=== PATIENT | female | born 1990 | race Two or more races ===

== ENCOUNTER → 2017-04-14 | Day surgery (SDC) | payer MEDICAID ==
[2017-04-11 12:56] LABS: Basophils # (auto) 0 uL; Basophils % (auto) 0.9 % (0.0-2.0); Eosinophils # (auto) 0.2 uL; Eosinophils % (auto) 4.9 % (0.0-7.0); Hematocrit 43.2 % (36.0-46.0); Hemoglobin 14.3 g/dL (12.2-16.2); Lymphocytes # (auto) 1.7 uL; Lymphocytes % (auto) 33.2 % (10.0-50.0); Mean Corpuscular Hemoglobin 29.2 pg (28.0-32.0); Mean Corpuscular Hgb Conc. 33.2 g/dL (32.0-36.0); Mean Platelet Volume 10.7 fL (6.9-10.8); Monocytes # (auto) 0.3 uL; Monocytes % (auto) 6.5 % (0.0-12.0); Neutrophils # (auto) 2.7 uL; Neutrophils % (auto) 54.5 % (37.0-80.0); Platelet Count (auto) 194 10^3/uL (140-450); Red Cell Distribution Width 14.8 % (11.8-14.3)
[2017-04-11 13:15] LABS: INR 0.98 (0.9-1.15); Partial Thromboplastin Time 31.4 sec (22.64-33.71); Prothrombin Time 10.7 sec (9.37-12.3)
[~2017-04-14] VITALS: Ht 160 cm; Wt 55.8 kg
[~2017-04-14] MED LIST: LIDOCAINE VISCOUS 2% 15ML UD ONE; ONDA4TAB5 PO; PANT40TA2 PO; SODIUM CHLORIDE LOCK 10 ML ONE; diphenhdrAMINE HCL 50 MG/1 ML VL ONE
[2017-04-14] MEDS: MIDAZOLAM HCL 5 MG/ML-1ML VIAL ONE ×3 (10:00→10:07)
[2017-04-14] MEDS: fentaNYL CITRATE 100 MCG/2 ML VL ONE ×2 (10:00→10:03)
[2017-04-14 10:55] VITALS: BP 124/67
== END | disposition home or self-care (01) ==
LOC: GI 09:17
PROVIDERS: ATTEND Internal Medicine Gastroenterology
DX: K29.50 Unspecified chronic gastritis without bleeding (principal); K31.89 Other diseases of stomach and duodenum
CPT/HCPCS: 43239; J1200; J3010; J7030; 36415; 84702; 85025; 85610; 85730; J2250

== ENCOUNTER → 2017-05-24 | Outpatient (CLI) | payer MEDICAID ==
[~2017-05-24] MED LIST changes: -LIDOCAINE VISCOUS 2% 15ML UD ONE; -SODIUM CHLORIDE LOCK 10 ML ONE; -diphenhdrAMINE HCL 50 MG/1 ML VL ONE
== END | disposition home or self-care (01) ==
LOC: XY 07:57
PROVIDERS: ATTEND Internal Medicine Gastroenterology
DX: R10.13 Epigastric pain (principal)
CPT/HCPCS: 78226; A9537

== ENCOUNTER 2017-06-14 04:53 | Day surgery (SDC) | payer MEDICAID, OTHER ==
[~2017-06-14] VITALS: Ht 160 cm; Wt 58.5 kg
[2017-06-14] MEDS ORDERED: PROPOFOL 10 MG/ML 20 ML IV ONE (05:06)
[2017-06-14] MEDS ORDERED: NEOSTIGMINE 1 MG/ML INJ (10mg/10ML VIAL) IV ONE (05:06)
[2017-06-14] MEDS ORDERED: GLYCOPYRROLATE 0.2 MG/ML 1ML VIAL IV ONE (05:06)
[2017-06-14] MEDS ORDERED: SEVOFLURANE 250 ML SOL IN ONE (05:06)
[2017-06-14] MEDS ORDERED: ROCURONIUM 10MG/ML 10ML VIAL IV ONE (05:06)
[2017-06-14 06:22] LABS: Basophils # (auto) 0 uL; Basophils % (auto) 0.9 % (0.0-2.0); Eosinophils # (auto) 0.1 uL; Eosinophils % (auto) 2.5 % (0.0-7.0); Hematocrit 41.3 % (36.0-46.0); Hemoglobin 14.1 g/dL (12.2-16.2); Lymphocytes % (auto) 41.2 % (10.0-50.0); Mean Corpuscular Hemoglobin 29.5 pg (28.0-32.0); Mean Corpuscular Volume 86.6 fL (80.0-100.0); Mean Platelet Volume 9.9 fL (6.9-10.8); Monocytes # (auto) 0.4 uL; Monocytes % (auto) 9.3 % (0.0-12.0); Neutrophils # (auto) 2.2 uL; Neutrophils % (auto) 46.1 % (37.0-80.0); Nucleated Red Blood Cells % 0.1 %; Platelet Count (auto) 173 10^3/uL (140-450); Red Cell Distribution Width 13.4 % (11.8-14.3); White Blood Cell 4.8 10^3/uL (4.4-10.8)
[2017-06-14 06:31] LABS: INR 0.99 (0.9-1.15); Partial Thromboplastin Time 31.1 sec (22.64-33.71); Prothrombin Time 10.8 sec (9.37-12.3)
[2017-06-14 06:41] LABS: Potassium 3.6 mmol/L (3.5-5.1)
[2017-06-14 06:47] LABS: Albumin 4.1 g/dL (3.4-5.0); BUN/Creatinine Ratio 23.1; Calcium 8.7 mg/dL (8.5-10.1)
[2017-06-14 06:48] LABS: Urine Bilirubin Negative (Negative); Urine Blood Negative /uL (Negative); Urine Color Yellow (Yellow); Urine Glucose Normal (Normal); Urine Ketone Negative (Negative); Urine Mucus FEW (None Seen); Urine Nitrite Negative (Negative); Urine RBC 1 /hpf (0 - 4); Urine Squamous Epithelial Cell MOD /hpf (<5); Urine Urobilinogen Normal (Negative)
[2017-06-14 06:49] LABS: Bilirubin, Total 0.4 mg/dL (0.2-1.0); Total Protein 7.5 g/dL (6.4-8.2)
[2017-06-14] MEDS ORDERED: SODIUM CHLORIDE 0.9% 1,000 ML IV ONE (07:14)
[2017-06-14] MEDS ORDERED: cefTRIAXone 1GM/10ml IVPUSH 10 ML IV ONE (07:15)
[2017-06-14 07:54] LABS: Magnesium 2.4 mg/dL (1.6-2.6)
[2017-06-14] MEDS ORDERED: LIDOCAINE 1% HCL (LOCAL ANESTH.) INJ 20ML MDV ONE (09:21)
[2017-06-14] MEDS ORDERED: fentaNYL CITRATE 100 MCG/2 ML VL ONE (09:22)
[2017-06-14] MEDS ORDERED: MIDAZOLAM HCL 1MG/1ML-2 ML VIAL ONE (09:22)
[2017-06-14] MEDS ORDERED: KETOROLAC TROMETH 30 MG/ML 1ML VIAL ONE (10:21)
[2017-06-14] MEDS ORDERED: ONDANSETRON HCL 4 MG/2 ML VIAL ONE (10:21)
[2017-06-14] MEDS ORDERED: HYDROmorphone HCL 2 MG/ML VL ONE (10:27)
[2017-06-14] MEDS ORDERED: hydrALAZINE HCL 20 MG/ML VL IV PRN (10:30)
[2017-06-14] MEDS ORDERED: MORPHINE SULF INJ 2 MG/ML SYRINGE 1ML IV PRN (10:30)
[2017-06-14] MEDS ORDERED: ePHEDrine SULFATE 50 MG/ML AMP IV PRN (10:30)
[2017-06-14] MEDS ORDERED: ONDANSETRON HCL 4 MG/2 ML VIAL IV ONE (10:30)
[2017-06-14] MEDS ORDERED: KETOROLAC TROMETH 30 MG/ML 1ML VIAL IV ONE (10:30)
[2017-06-14] MEDS: HYDROmorphone HCL 2 MG/ML VL IV PRN ×4 (10:34→12:22)
[2017-06-14 13:10] VITALS: BP 96/49
== END 2017-06-14 13:15 | disposition home or self-care (01) ==
LOC: ER 05:05 → SUR 05:06 → ER 11:49 → SUR 13:15
PROVIDERS: ATTEND Surgery
DX: K82.4 Cholesterolosis of gallbladder (principal); K81.1 Chronic cholecystitis; K82.8 Other specified diseases of gallbladder
CPT/HCPCS: 47562; C1769; J1170; J3010; J7030; 36415; 71020; 80053; 81001; 81025; 83690; 83735; 85025; 85610; 85730; 86850; 86900; 86901; 93005; J1885; J2001; J2250; J2405; J2704

== ENCOUNTER 2018-04-19 17:44 | Emergency (ER) | payer MEDICAID ==
[~2018-04-19] VITALS: Ht 160 cm; Wt 59.0 kg
[2018-04-19 17:51] VITALS: BP 134/90
[2018-04-19] MEDS ORDERED: predniSONE 20 MG TAB PO ONE (19:15)
[2018-04-19] MEDS ORDERED: BENZOCAINE (DENTAL) 20 % SPRAY 60ML MT ONE (19:15)
== END 2018-04-19 19:49 | disposition home or self-care (01) ==
LOC: ER 17:56
DX: B34.9 Viral infection, unspecified (principal); R22.0 Localized swelling, mass and lump, head; K21.9 Gastro-esophageal reflux disease without esophagitis
CPT/HCPCS: 99283; J7512

== ENCOUNTER 2019-08-10 09:14 | Emergency (ER) | payer MEDICAID ==
[~2019-08-10] VITALS: Ht 160 cm; Wt 58.1 kg
[~2019-08-10 09:14] MED LIST changes: +ONDA-144 PO; -ONDA4TAB5 PO
[2019-08-10] MEDS ORDERED: KETOROLAC TROMETH 60MG/2ML VIAL IM ONE (09:45)
[2019-08-10] MEDS ORDERED: cefTRIAXone SOD 1,000 MG VL IM ONE (09:45)
[2019-08-10 10:10] VITALS: BP 135/73
== END 2019-08-10 10:37 | disposition home or self-care (01) ==
LOC: ER 09:14
DX: K04.7 Periapical abscess without sinus (principal); K21.9 Gastro-esophageal reflux disease without esophagitis
CPT/HCPCS: 96372; 99284; J0696; J1885

== ENCOUNTER 2019-08-28 06:24 | Emergency (ER) | payer MEDICAID ==
[~2019-08-28] VITALS: Ht 160 cm; Wt 62.3 kg
[2019-08-28 06:56] VITALS: BP 108/55
[2019-08-28 08:31] LABS: Urine Bacteria NONE SEEN /hpf (None Seen); Urine Blood 3+ /uL (Negative); Urine WBC 2284 /hpf (0 - 5); Urine WBC Clumps PRESENT /hpf (None Seen)
[2019-08-28] MEDS ORDERED: cefTRIAXone SOD 1,000 MG VL IM ONE (08:45)
[2019-08-28] MEDS ORDERED: KETOROLAC TROMETH 60MG/2ML VIAL IM ONE (08:45)
== END 2019-08-28 09:43 | disposition home or self-care (01) ==
LOC: ER 06:24
DX: N39.0 Urinary tract infection, site not specified (principal); M54.42 Lumbago with sciatica, left side; M54.41 Lumbago with sciatica, right side; K21.9 Gastro-esophageal reflux disease without esophagitis; Z87.440 Personal history of urinary (tract) infections; Z79.899 Other long term (current) drug therapy
CPT/HCPCS: 74176; 81001; 81025; 96372; 99284; J0696; J1885

== ENCOUNTER 2020-01-01 17:54 | Emergency (ER) | payer MEDICAID ==
[~2020-01-01] VITALS: Ht 160 cm; Wt 61.2 kg
[2020-01-01 19:45] VITALS: BP 109/73
== END 2020-01-01 20:38 | disposition home or self-care (01) ==
LOC: ER 18:03
DX: U07.1 COVID-19 (principal); K21.9 Gastro-esophageal reflux disease without esophagitis; Z90.49 Acquired absence of other specified parts of digestive tract
CPT/HCPCS: 71045; 87635

== ENCOUNTER → 2020-03-17 | Outpatient (CLI) | payer OTHER | END | disposition home or self-care (01) | LOC: LAB 09:34 | PROVIDERS: ATTEND Preventive Medicine Preventive Medicine/Occupational Environmental Medicine | DX: Z02.1 Encounter for pre-employment examination (principal) | CPT/HCPCS: 36415; 86706; 86735; 86762; 86765; 86787 ==